=== PATIENT | male | born 1985 | race Caucasian/White ===

== ENCOUNTER 2018-08-09 03:01 | Emergency (ER) | payer MEDICAID, OTHER ==
[2018-08-09] MEDS: predniSONE 20 MG TAB PO (05:08)
[2018-08-09] MEDS: KETOROLAC 60 MG INJ IM (05:09)
== END 2018-08-09 06:20 | disposition home or self-care (01) ==
LOC: FTE 03:01
DX: I88.9 Nonspecific lymphadenitis, unspecified (principal)
CPT/HCPCS: 96372; 99284-25